=== PATIENT | female | born 1995 | race American Indian/Alaskan Native ===

== ENCOUNTER 2017-12-29 23:40 | Inpatient (IN) | payer OTHER ==
[2017-12-30] MEDS ORDERED: LACTATED RINGERS 1,000 ML ONE (00:11)
[2017-12-30] MEDS ORDERED: CELESTONE SOLUSPAN IM ONE (00:15)
[2017-12-30] MEDS ORDERED: SUBLIMAZE ONE (00:18)
[2017-12-30 00:37] LABS: Basophils # (Auto) 0.1 K/mm3 (0.0-0.1); Basophils % (Auto) 0.6 % (0.0-1.8); Eosinophils % (Auto) 0.2 % (0.0-4.3); Hematocrit 30.8 % (30.3-42.9); Hemoglobin 10.7 gm/dl (10.1-14.3); Lymphocytes # (Auto) 1.7 K/mm3 (1.2-5.4); Lymphocytes % (Auto) 20.1 % (13.4-35.0); Mean Corpuscular HGB Conc 35 % (30-34); Mean Corpuscular Hemoglobin 30 pg (28-32); Mean Corpuscular Volume 86 fl (79-97); Monocytes # (Auto) 0.7 K/mm3 (0.0-0.8); Monocytes % (Auto) 7.7 % (0.0-7.3); Platelet Count 212 K/mm3 (140-440); Red Blood Count 3.59 M/mm3 (3.65-5.03); Red Cell Distribution Width 14.4 % (13.2-15.2)
[2017-12-30] MEDS ORDERED: SUBLIMAZE IV ONE (00:47)
[2017-12-30] MEDS ORDERED: LACTATED RINGERS 1,000 ML IV SCH (01:00)
[2017-12-30] MEDS ORDERED: POLYCILLIN/NS 2 GM/100 ML 2 GM/100 ML BAG IV SCH (01:00)
[2017-12-30] MEDS ORDERED: PITOCin/NS 20 UNIT/1000ML DRIP 20 UNITS/1,000 ML BAG IV SCH (01:00)
[2017-12-30 01:02] LABS: Hepatitis C Virus Antibody Non-Reactive (NonReactive)
--- NOTE | 2017-12-30 01:20 | History and Physical Report ---
History of Present Illness Date of examination: 12/30/17 Date of admission: 12/29/17 23:53 Chief complaint: contractions History of present illness: 22y/o @ 36+1 weeks by an ultrasound performed in labor. The patient stated she had care with an EDC of 03/31/[address] the at 27+0 weeks. EFW 2944gms in vertex presentation. The patient presents with advanced cervical dilation and ruptured membranes. No records are available for review. She reports a prior 36 week delivery Past History Past Medical History: no pertinent history Past Surgical History: no surgical history Social history: single - Obstetrical History Expected Date of Delivery: 01/26/18 Actual Gestation: 36 Week(s) 1 Day(s) : 3 Para: 1 Hx # Term Pregnancies: 0 Number of Pregnancies: 1 Spontaneous Abortions: 1 Induced : 0 Number of Living Children: 1 Medications and Allergies Allergies Allergy/AdvReac Type Severity Reaction Status Date / Time No Known Allergies Allergy Unverified 12/30/17 00:09 Home Medications Medication Instructions Recorded Confirmed Last Taken Type No Known Home Medications [No 12/30/17 12/30/17 Unknown History Reported Home Medications] Active Meds: Active Medications Ampicillin Sodium (Polycillin/Ns 2 Gm/100 Ml) 2 gm in 100 mls @ 100 mls/hr IV ONCE DINESH; Protocol Last Admin: 12/30/17 00:52 Dose: 100 mls/hr Lactated Ringer's (Lactated Ringers) 1,000 mls @ 125 mls/hr IV DIRECT DINESH Oxytocin/Sodium Chloride (Pitocin/Ns 20 Unit/1000ml Drip) 20 units in 1,000 mls @ 125 mls/hr IV DIRECT DINESH Review of Systems Genitourinary: leakage of fluid, pelvic pain, contractions - Vital Signs Vital signs: Vital Signs Temp Pulse Resp BP 97.9 F 71 18 129/67 12/30/17 00:02 12/30/17 00:02 12/30/17 00:02 12/30/17 00:02 Temp Pulse Resp BP Pulse Ox 97.9 F 76 18 129/67 98 12/30/17 00:02 12/30/17 00:58 12/30/17 00:02 12/30/17 00:05 12/30/17 00:58 - Physical Exam Breasts: Positive: deferred Cardiovascular: Regular rate Lungs: Positive: Clear to auscultation Abdomen: Positive: normal appearance Results Result Diagrams: 12/30/17 00:05 Abnormal lab results 12/30/17 Range/Units 00:05 RBC 3.59 L (3.65-5.03) M/mm3 MCHC 35 H (30-34) % [place] % (Auto) 7.7 H (0.0-7.3) % Seg Neutrophils % 71.4 H (40.0-70.0) % All other labs normal. Assessment and Plan - Patient Problems (1) labor Current Visit: Yes Status: Acute Plan to address problem: admit to L&D anticipate a vaginal delivery (2) Insufficient care Current Visit: Yes Status: Acute
[2017-12-30 01:30] LABS: Rubella IgG Antibody Immune (Immune)
--- NOTE | 2017-12-30 01:40 | Procedure Note ---
OB Delivery Note - Delivery Date of Delivery: 12/30/17 Surgeon: MOISES PALOMARES Estimated blood loss: 100cc - Vaginal Delivery presentation: vertex Delivery position: OA Intrapartum events: no care Delivery augmentation: rupture of membranes Delivery monitor: external FHT Route of delivery: Delivery placenta: spontaneous Delivery cord: 3 umbilical vessels Episiotomy: none Delivery laceration: none Anesthesia: none Delivery comments: Patient progressed to C/C/+2 and pushed to deliver a liveborn male with apgars of 8/9 and weight of 6lbs 13oz. After delivery of the head, the shoulders delivered without difficulty. The cord was clamped and cut and the infant placed on the patient's abdomen. The placenta delivered spontaneously intact with a 3VC. No lacerations were noted. EBL 100ml - A at 1 minute: 8 at 5 minutes: 9 Infant Gender: Male (weight 6lbs 13oz)
[2017-12-30] MEDS ORDERED: ZOFRAN IV PRN (01:41)
[2017-12-30] MEDS ORDERED: PHENERGAN PR PRN (01:41)
[2017-12-30] MEDS ORDERED: LANSINOH TP PRN (01:41)
[2017-12-30] MEDS ORDERED: TUCKS PAD TP PRN (01:41)
[2017-12-30] MEDS ORDERED: PHENERGAN PO PRN (01:41)
[2017-12-30] MEDS ORDERED: TYLENOL PO PRN (01:41)
[2017-12-30] MEDS ORDERED: DULCOLAX PR PRN (01:41)
[2017-12-30] MEDS ORDERED: MILK OF MAGNESIA PO PRN (01:41)
[2017-12-30] MEDS ORDERED: BENADRYL PO PRN (01:41)
[2017-12-30] MEDS ORDERED: SODIUM CHLORIDE FLUSH SYRINGE 10 ML IV NR (02:00)
[2017-12-30] MEDS: NORCO 5/325 PO PRN ×3 (02:22→16:50)
--- NOTE | 2017-12-30 02:28 | Ultrasound Report ---
FINAL REPORT EXAM: US OB FOLLOW UP HISTORY: Labor; ROM TECHNIQUE: Transabdominal imaging was obtained of the pelvis. FINDINGS: There is a single viable intrauterine in cephalic presentation corresponding to 36 weeks 1 day gestational. The heart rate is 123 BPM. The KEYANNA is 14.1 cm which is normal. The placenta is posterior in position and is grade 2. There is no evidence of previa. The cervical length is 1.4 cm. The estimated weight is 2944 grams. A complete survey of organs was not obtained. IMPRESSION: Single viable intrauterine , 36 weeks 1 day in cephalic presentation. The KEYANNA is normal at 14.1 cm. The heart rate is 123 BPM
[2017-12-30 05:03] LABS: Amphetamine Screen,Urine PRESUMPTIVE NEGATIVE; Benzodiazepines Screen,Urine PRESUMPTIVE NEGATIVE; Cannabinoid Screen,Urine PRESUMPTIVE NEGATIVE; Cocaine Screen,Urine PRESUMPTIVE NEGATIVE; Methadone Screen,Urine PRESUMPTIVE NEGATIVE; Opiate Screen,Urine PRESUMPTIVE NEGATIVE
[2017-12-30] MEDS: MOTRIN PO SCH ×4 (05:24→23:13)
--- NOTE | 2017-12-30 08:43 | Progress Note ---
Assessment and Plan - Patient Problems (1) labor Current Visit: Yes Status: Acute Plan to address problem: routine care insufficient GBS coverage and delivery patient and infant will be observed for 48 hours (2) Insufficient care Current Visit: Yes Status: Acute Subjective - Subjective Date of service: 12/30/17 Interval history: The patient is without any significant complaints. Lochia is normal. Pain is controlled. Patient reports: appetite normal, voiding normally, pain well controlled : doing well Objective - Vital Signs Latest vital signs: Vital Signs Temp Temp Pulse Resp BP BP Pulse Ox 12/30/17 05:24 18 12/30/17 04:00 98.7 F 63 18 134/86 12/30/17 03:13 18 128/68 12/30/17 02:58 72 18 126/64 126/64 12/30/17 02:43 82 18 146/65 146/65 12/30/17 02:28 76 150/73 12/30/17 02:23 73 18 124/58 124/58 12/30/17 02:14 96 H 206/88 12/30/17 02:05 84 18 135/73 12/30/17 01:58 84 135/73 12/30/17 01:52 97.6 F 154 H 44 H 12/30/17 01:43 80 18 137/74 137/74 12/30/17 01:08 77 100 12/30/17 00:58 76 98 12/30/17 00:56 80 74 L 12/30/17 00:53 69 98 12/30/17 00:48 67 98 12/30/17 00:05 71 129/67 12/30/17 00:02 97.9 F 71 18 129/67 Intake and Output 12/29/17 12/30/17 12/30/17 22:59 06:59 14:59 Intake Total 600 Output Total 1400 Balance -800 Intake: Intake, Free Water 600 Output: Urine 1400 Void 1400 Other: Total, Output Amount 800 # Voids Void 1 Weight 71.668 kg Estimated Blood Loss 100 - Exam Uterus: Present: normal, firm - Labs Labs: Abnormal lab results 12/30/17 Range/Units 00:05 RBC 3.59 L (3.65-5.03) M/mm3 MCHC 35 H (30-34) % [place] % (Auto) 7.7 H (0.0-7.3) % Seg Neutrophils % 71.4 H (40.0-70.0) %
[2017-12-30 13:52] LABS: Hematocrit 30.6 % (30.3-42.9); Hemoglobin 10.2 gm/dl (10.1-14.3)
[2017-12-31] MEDS: MOTRIN PO SCH (05:05)
--- NOTE | 2017-12-31 16:00 | Progress Note ---
Assessment and Plan A: PPD#2 s/p , no care, Pt on 24 hr hold P: Routine care. Increase Motrin to 800 mg. Anticipate discharge in the AM. Subjective - Subjective Date of service: 12/31/17 Principal diagnosis: s/p , no care Interval history: Pt reports increased cramping moderately relieved by Motrin 600 mg. She reports moderate bleeding. Patient reports: appetite normal, voiding normally, pain well controlled, ambulating normally : doing well Objective - Vital Signs Latest vital signs: Vital Signs Temp Pulse Resp BP Pulse Ox 12/31/17 01:25 98.2 F 76 20 111/55 96 12/30/17 16:22 97.8 F 60 20 124/77 98 Intake and Output 12/31/17 12/31/17 12/31/17 06:59 14:59 22:59 Intake Total 480 Balance 480 Intake: Oral 480 Other: Total, Intake Amount 240 # Voids Void 1 - Exam Breasts: Present: deferred Cardiovascular: Present: Regular rate Lungs: Present: Clear to auscultation Uterus: Present: fundal height at umbilicus Extremities: Present: normal
--- NOTE | 2017-12-31 16:05 | Discharge Summary ---
Providers - Providers Date of Admission: 12/29/17 23:53 Date of discharge: 01/01/18 Attending physician: MOISES PALOMARES Primary care physician: MOISES PALOMARES Hospitalization Reason for admission: active labor Delivery: Procedure details: Please see delivery note. Episiotomy: none Laceration: none Other procedures: none complications: none Discharge diagnosis: IUP at term delivered [place] baby: male Hospital course: The patient was admitted in active labor and went on to have a spontaneous vaginal delivery which she tolerated well. Her course uncomplicated fashion a discharge criteria on day #2. She will follow up in 4 weeks for examination. Condition at discharge: Stable Disposition: - TO HOME OR SELFCARE - Discharge Diagnoses (1) Anemia Status: Acute Qualifiers: Anemia type: unspecified type Qualified Code(s): D64.9 - Anemia, unspecified (2) Insufficient care Status: Acute (3) labor Status: Acute Plan - Discharge Medications Prescriptions: HYDROcodone/APAP 5-325 [[place] 5/325] 1 each PO Q6HR PRN #30 tablet PRN Reason: Pain Ibuprofen [Motrin] 800 mg PO Q8HR PRN #60 tablet PRN Reason: Pain, Mild (1-3) - Provider Discharge Summary Activity: routine, no sex for 6 weeks, no heavy lifting 4 weeks, no strenuous exercise Diet: routine Instructions: routine Additional instructions: [] Smoking cessation referral if applicable(refer to patient education folder for contact #) [] Refer to [facility] Call your doctor immediately for: * Fever > 100.5 * Heavy vaginal bleeding ( >1 pad per hour) * Severe persistent headache * Shortness of breath * Reddened, hot, painful area to leg or breast * Drainage or odor from incision. * Keep incision clean and dry at all times and follow doctor's instructions regarding bathing/showering - Follow up plan Follow up: MOISES PALOMARES MD [Primary Care Provider] - 6 Weeks (please call office to schedule an appt )
[2017-12-31] MEDS: NORCO 5/325 PO PRN (18:48)
[2017-12-31] MEDS: MOTRIN PO PRN (20:54)
[2018-01-01] MEDS: NORCO 5/325 PO PRN (00:27)
[2018-01-01] MEDS: MOTRIN PO PRN (05:15)
[2018-01-01 09:23] VITALS: BP 132/61
== END 2018-01-01 10:14 | disposition home or self-care (01) | DRG 775 ==
LOC: TRG 23:40 → EEVIPCON 23:53 → TRG 23:53 → LD 23:53 → OB 12-30 03:55
PROVIDERS: ADMIT Obstetrics & Gynecology; ATTEND Obstetrics & Gynecology
PROC: 10E0XZZ Delivery of Products of Conception, External Approach (ICD-10-PCS; principal; 2017-12-30)
DX: O60.14X0 Preterm labor third trimester with preterm delivery third trimester, not applicable or unspecified (principal); Z3A.36 36 weeks gestation of pregnancy; Z37.0 Single live birth; O99.02 Anemia complicating childbirth; D64.9 Anemia, unspecified
CPT/HCPCS: 36415; 76816; 80307; 85014; 85018; 85025; 85660; 86592; 86706; 86762; 86803; 86850; 86900; 86901; 87806; J0290; J0702; J2590; J3010; J7120